=== PATIENT | female | born 1970 | race Caucasian/White ===

== ENCOUNTER 2022-04-08 12:40 | Emergency (ER) | payer OTHER, SELFPAY ==
[2022-04-08 13:55] VITALS: BP 145/88; PULSE 77; RESP 16; TEMP 36.9; O2SAT 99; BMI 29.8
--- NOTE | 2022-04-08 13:58 | CRLHL7_ITS ---
For Patients: As a result of the Century Cures Act, medical imaging exams and procedure reports are released immediately into your electronic medical record. You may view this report before your referring provider. If you have questions, please contact your health care provider. INDICATION: Injury. TECHNIQUE: Three views of the right ankle. COMPARISON: None available. FINDINGS: Linear calcific density interposed between the lateral malleolus and lateral talus. No dislocation or additional fracture identified. Ankle mortise congruent. The tibiotalar joint space is maintained. Lateral predominant soft tissue swelling. IMPRESSION: Linear calcific density interposed between the lateral malleolus and lateral talus is suspicious for an acute avulsion fracture. Dictated by Wood Aguila MD @ 04/08/2022 3:06:49 PM Dictated by: Wood Aguila MD @ 04/08/2022 15:06:54 (Electronically Signed)
--- NOTE | 2022-04-08 13:59 | ED.LOWEXIN ---
HPI - Extremity Injury (Lower) General Time Seen by Provider: 13:59 Date Seen: 04/08/22 Chief Complaint: Extremity Pain/Injury, Lower Stated Complaint: Fall/ankle injury Time Seen by Provider: 04/08/22 13:57 Source: patient and RN notes reviewed Mode of arrival: wheelchair Limitations: no limitations History of Present Illness HPI Narrative: Patient is a 51-year-old female coming in with right ankle pain. It hurts on the inside and the outside of the ankle. This happened yesterday, was trying to wait it out. She was coming down the stairs and slipped on the ice, twisting the ankle. She states she can feel the toes but they feel tingly to her. Has been trying to elevate and ice. Ankle is swollen per patient. It is hurting to walk on it. Did not hit her head, no loss of consciousness, does not observe any other injuries at this time from the fall. Related Data Home Medications Medication Instructions Recorded Confirmed levothyroxine .ROUTE 04/08/22 meloxicam 15 mg tablet 15 mg PO DAILY 04/08/22 04/08/22 Allergies Allergy/AdvReac Type Severity Reaction Status Date / Time Sulfa (Sulfonamide Allergy Severe Hives Verified 04/08/22 13:58 Antibiotics) Review of Systems Narrative: As per HPI Exam Const: Vital Signs, click to edit/add: Vital Signs - 24 hr 04/08/22 13:55 Temperature 98.5 F Pulse Rate [Left P ulse Oximeter] 77 Respiratory Rate 16 Blood Pressure [Le ft Upper Arm] 145/88 H Pulse Oximetry 99 Oxygen Delivery Me thod Room Air Documenting provider has reviewed patient's vital signs: yes Common normals: no apparent distress, average body habitus, oriented x3, no limitations, healthy appearing, alert and well nourished Other: Patient is right ankle is obviously swollen laterally. She is tender over the distal fibula. She has no swelling medially but states there is pain over the medial malleolus as well. The Achilles seems to be intact. Ankle mortise anteriorly nontender. Has a good dorsalis pedis pulse. States she can feel her toes when I touch. With the swelling about the ankle, did not mobilize her ankle. Will obtain x-rays 1st. Neuro: Common normals: oriented x3 Sensorium/orientation: alert Course Course Hospital Course: Ordering three view films of her right ankle, need to rule out underlying fracture. Patient is in agreement with the plan. Reevaluation(s) Reevaluation #1: Have reviewed with patient that there may be a subtle fracture on the lateral malleolus. This would fit with her clinical picture. We will place her in a cam walker. If she can comfortably ambulate then will not need crutches. If she is having pain once in the cam walker with walking, will have her fitted for crutches. She is from [place], will get a disc of her images for her to take home to follow up with Orthopedics. Time: 15:36 Vital Signs Vital signs: Initial Vital Signs Temperature 98.5 F 04/08/22 13:55 Temperature Source Temporal Artery Scan 04/08/22 13:55 Pulse Rate 77 04/08/22 13:55 Pulse Rhythm 04/08/22 13:55 Pulse Strength 3+ Normal 04/08/22 13:55 Respiratory Rate 16 04/08/22 13:55 Blood Pressure 145/88 H 04/08/22 13:55 Blood Pressure Mean 107 04/08/22 13:55 Pulse Oximetry 99 04/08/22 13:55 Oxygen Delivery Method 04/08/22 13:55 Vital Signs Temperature 98.5 F 04/08/22 13:55 Pulse Rate 77 04/08/22 13:55 Respiratory Rate 16 04/08/22 13:55 Blood Pressure 145/88 H 04/08/22 13:55 Pulse Oximetry 99 04/08/22 13:55 Oxygen Delivery Method 04/08/22 13:55 Temperature 98.5 F 04/08/22 13:55 Pulse Rate 77 04/08/22 13:55 Respiratory Rate 16 04/08/22 13:55 Blood Pressure 145/88 H 04/08/22 13:55 Pulse Oximetry 99 04/08/22 13:55 Oxygen Delivery Method 04/08/22 13:55 MDM - Extremity Injury (Lower) Imaging Data X-ray right ankle: Attestation: I have reviewed the pertinent imaging results. Radiologist's impression: Patient: DANIEL CARPIO Facility:?[facility] Patient ID:?[id number] Site Patient ID:?[id number]. Site :?[id number] Study:?XRay Extremity Right ANKLE 3V-04/08/2022 2:46:07 PM Ordering Physician:Lucila Archer Final Report: INDICATION: Injury. TECHNIQUE: Three views of the right ankle. COMPARISON: None available. FINDINGS: Linear calcific density interposed between the lateral malleolus and lateral talus. No dislocation or additional fracture identified. Ankle mortise congruent. The tibiotalar joint space is maintained. Lateral predominant soft tissue swelling. IMPRESSION: Linear calcific density interposed between the lateral malleolus and lateral talus is suspicious for an acute avulsion fracture. Dictated by Wood Aguila MD @ 04/08/2022 3:06:49 PM Dictated by: Wood Aguila MD @ 04/08/2022 15:06:54 (Electronic Signature) Critical Care Time Critical Care Time Critical Care Time: No Discharge Plan Discharge Clinical Impression: Fracture of distal end of fibula Patient Disposition: Home, Self-Care Condition: Stable Instructions: Ankle Fracture (ED) Additional Instructions: Keep cam walker on for immobilization. When your leg is elevated, can open up the front of the cam walker to ice the ankle area to help minimize swelling. Elevate your leg as much as possible the next 3-5 days to help minimize swelling. Tylenol and/or ibuprofen as needed for pain control, follow bottle directions for dosing. Need to be re-evaluated with Orthopedics within the next 7-10 days or as directed by your orthopedist. Please contact them when you get home to get this scheduled, bring your disc of the x-rays in for that appointment. Prescriptions: No Action levothyroxine .ROUTE meloxicam 15 mg tablet 15 mg PO DAILY Stand Alone Forms: [employer] Info Instructions
== END 2022-04-08 15:49 | disposition home or self-care (01) ==
PROVIDERS: Emergency Provider Family Medicine
DX: S82.831A Other fracture of upper and lower end of right fibula, initial encounter for closed fracture (principal); W00.1XXA Fall from stairs and steps due to ice and snow, initial encounter; Y93.9 Activity, unspecified; Y92.9 Unspecified place or not applicable; Y99.9 Unspecified external cause status
CPT/HCPCS: 73610; 99283